=== PATIENT | male | born 1945 | race Caucasian/White ===

== ENCOUNTER → 2022-06-19 | Outpatient (CLI) | payer MEDICARE ==
[2022-06-19 14:52] LABS: African American GFR (CKD) 95.8 (60.0-200.0); Anion Gap 12.9 mmol/L (10.00-18.00); BUN/Creat Ratio 16.56 Ratio (12.00-20.00); Blood Urea Nitrogen 14.9 mg/dL (9.0-27.0); Calcium 9.5 mg/dL (8.7-10.3); Carbon Dioxide 27.1 mmol/L (20.0-27.5); Non-African American GFR(CKD) 82.7 (60.0-200.0); Potassium 3.6 mmol/L (3.5-5.5)
[2022-06-19 15:06] LABS: Basophils # (A) 0.05 X 10*3/uL (0.00-0.10); Basophils % (A) 0.6 %; Eosinophils # (A) 0.25 X 10*3/uL (0.04-0.35); Eosinophils % (A) 2.9 %; HGB 15.7 g/dL (13.0-17.0); Immature Grans, Automated 0.2 %; Lymphocytes # (A) 1.09 X 10*3/uL (0.90-5.00); Lymphocytes % (A) 12.6 %; MCH 29.7 pg (27.0-32.0); MCHC 34.1 g/dL (32.0-37.0); Mean Platelet Volume 9.2 fL (9.5-12.2); Monocytes # (A) 0.85 X 10*3/uL (0.20-1.00); Monocytes % (A) 9.8 %; NRBC Per 100 WBC 0 /100 WBCS (0.0-0.0); Neutrophils # (A) 6.42 X 10*3/uL (1.80-7.70); Neutrophils % (A) 73.9 %; Platelet Count 266 X 10*3/uL (140-440); RBC 5.29 X 10*6/uL (4.40-5.60); RDW 13.9 % (11.5-14.5); WBC 8.68 X 10*3/uL (4.50-10.00)
== END | disposition home or self-care (01) ==
LOC: LABPAT 09:33
PROVIDERS: ATTEND Urology
DX: Z01.812 Encounter for preprocedural laboratory examination (principal); C61 Malignant neoplasm of prostate
CPT/HCPCS: 80048; 85025

== ENCOUNTER 2022-06-28 10:22 | Day surgery (SDC) | payer MEDICARE ==
--- NOTE | 2022-06-26 20:35 | P.GSHP ---
History of Present Illness H&P Date: 06/26/22 Chief Complaint: Prostate cancer The patient is a 76-year-old white male diagnosed with prostate cancer in April 2021. 3 of 12 biopsies showed [place] 6 adenocarcinoma, located in the right apex, right lateral apex, and left mid gland. The PSA level has been rising and was most recently 7.10. His father of metastatic prostate cancer. The patient was advised that his cancer is low risk and that active surveillance is an appropriate course of action. However, he wishes to undergo treatment in the form of a robotic-assisted laparoscopic prostatectomy (RALP). He is and not sexually active. He reports mild obstructive voiding symptoms. 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 has had injections to this area History of Any Multi-Drug Resistant Organisms: None Reported Past Surgical History: Tonsillectomy Additional Past Surgical History / Comment(s): toe surgery on left great toe Past Anesthesia/Blood Transfusion Reactions: No Reported Reaction Smoking Status: Never smoker - Past Family History Father Additional Family Medical History / Comment(s): prostate ca in dad and brother with mets to bone Mother Family Medical History: Coronary Artery Disease (CAD), Diabetes Mellitus Additional Family Medical History / Comment(s): borderline dm obesity Medications and Allergies Home Medications Medication Instructions Recorded Confirmed Type Ascorbic Acid [Vitamin C] 500 mg PO DAILY 06/23/22 06/23/22 History Aspirin [Adult Low Dose Aspirin EC] 81 mg PO DAILY 06/23/22 06/23/22 History Atorvastatin [Lipitor] 40 mg PO DAILY 06/23/22 06/23/22 History Celecoxib [CeleBREX] 200 mg PO DAILY 06/23/22 06/23/22 History Chlorthalidone 25 mg PO DAILY 06/23/22 06/23/22 History Cholecalciferol [Vitamin D3 (25 1 tab PO DAILY 06/23/22 06/23/22 History Mcg = 1000 Iu)] Metoprolol Succinate (ER) [Toprol 50 mg PO DAILY 06/23/22 06/23/22 History Xl] Potassium Chloride [Potassium 10 meq PO DAILY 06/23/22 06/23/22 History Chloride ER] Zinc Gluconate [Zinc] 50 mg PO DAILY 06/23/22 06/23/22 History amLODIPine 10 mg PO DAILY 06/23/22 06/23/22 History cycloSPORINE 0.05% OPHTH SOLN 1 drop BOTH EYES DAILY 06/23/22 06/23/22 History [Restasis] Allergies Allergy/AdvReac Type Severity Reaction Status Date / Time No Known Allergies Allergy Verified 06/23/22 15:08 Surgical - Exam - General well developed, well nourished, no distress - Neck no masses, trachea midline - Respiratory normal respiratory effort - Abdomen Abdomen: soft, non tender, no guarding, no rigid, no rebound Hernia: inguinal, umbilical - Genitourinary normal penis with no external lesions, testicles non-tender - Rectum Rectum: normal sphincter tone, no masses, other (Left apical prostate nodule) - Psychiatric oriented to time, oriented to person, oriented to place, speech is normal, memory intact Assessment and Plan (1) Malignant neoplasm of prostate Status: Acute Code(s): C61 - MALIGNANT NEOPLASM OF PROSTATE SNOMED Code(s): 180578443 Plan: Robotic-assisted laparoscopic prostatectomy (RALP). The procedure has been reviewed in detail with the patient. He has been made aware of potential risks, which include anesthesia, bleeding, infection, bowel injury, urinary leak, vesical neck contracture, and postoperative urinary incontinence which may fail to resolve.
[~2022-06-28 10:22] MED LIST: DEXAMETHASONE SOD PHOSPHATE 4 MG/ML 1 ML VIAL IV ONE; HEPARIN SODIUM,PORCINE/PF 5,000 UNIT/0.5 ML SYRINGE SQ PRN; HYDROmorphone 0.5 MG/0.5 ML SYRINGE IVP PRN; MIDAZOLAM 2 MG/2 ML VIAL IV PRN; ONDANSETRON 4 MG/2 ML VIAL IVP ONE
[2022-06-28] MEDS: LACTATED RINGERS 1,000 ML IV SCH (10:55)
[2022-06-28] MEDS ORDERED: ROPIVACAINE 5 MG/ML 30 ML VIAL ONE (12:36)
[2022-06-28] MEDS ORDERED: NEOSTIGMINE 1 MG/ML 10 ML VIAL ONE (12:36)
[2022-06-28] MEDS ORDERED: SUCCINYLCHOLINE CHLORIDE 200 MG/10 ML VIAL IV ONE (12:36)
[2022-06-28] MEDS ORDERED: fentaNYL (PF) 50 MCG/ML 2 ML AMP ONE (12:36)
[2022-06-28] MEDS ORDERED: MIDAZOLAM 2 MG/2 ML VIAL ONE (12:36)
[2022-06-28] MEDS ORDERED: GLYCOPYRROLATE 0.2 MG/ML 2 ML VIAL ONE (12:36)
[2022-06-28] MEDS ORDERED: LIDOCAINE 2% INJ 20 MG/ML (2 ML VIAL) ONE (12:36)
[2022-06-28] MEDS ORDERED: DEXAMETHASONE SOD PHOS (MDV) 100 MG/10 ML VIAL ONE (12:36)
[2022-06-28] MEDS ORDERED: HYDROmorphone (PF) 1 MG/ML ONE (12:36)
[2022-06-28] MEDS ORDERED: PROPOFOL 10 MG/ML 20 ML VIAL IV ONE (12:36)
[2022-06-28] MEDS ORDERED: ROCURONIUM 10 MG/ML (5 ML VIAL) IV ONE (12:36)
[2022-06-28] MEDS ORDERED: SODIUM CHLORIDE 0.9% (PF) 10 ML VIAL ONE (12:36)
[2022-06-28] MEDS ORDERED: PHENYLEPHRINE-0.9% NACL SYG 1,000 MCG/10 ML SYRINGE ONE (12:36)
[2022-06-28] MEDS ORDERED: BUPIVACAINE (PF) 0.25% 30 ML VIAL SQ ONE ×2 (13:18→16:29)
--- NOTE | 2022-06-28 13:19 | P.ANPRN ---
Procedure Note - Anesthesia - Nerve Block Performed Bilateral Erector Spinae Time Out Performed: Yes (11:36) Date of Procedure: 06/28/22 Procedure Start Time: :36 Procedure Stop Time: :43 Location of Patient: PreOp Indication: Acute Post-Operative Pain, Requested by Surgeon (Dr Mcneill) Sedation Type: Sedate with meaningful contact maintained Preparation: Sterile Prep Position: Sitting Catheter: None Needle Types: Pajunk Needle Gauge: 21 Ultrasound used to visualize needle placement: Yes Ultrasound used to observe medication spread: Yes Injectate: 0.5% Ropivacaine (see comment for volume) (15cc +10cc PF Normal saline each side) Blood Aspirated: No Pain Paresthesia on Injection Noted: No Resistance on Injection: Normal Image Stored and Saved: Yes Events: Uneventful and Well Tolerated
[2022-06-28] MEDS ORDERED: LACTATED RINGERS 1,000 ML IV ONE (15:53)
--- NOTE | 2022-06-28 16:41 | P.OP ---
Date of Procedure: 06/28/22 Preoperative Diagnosis: Adenocarcinoma the prostate Postoperative Diagnosis: Same Procedure(s) Performed: Robotic-assisted laparoscopic prostatectomy (RALP) Anesthesia: REJI Surgeon: Jabier Mcneill Estimated Blood Loss (ml): 75 IV fluids (ml): 1,800 Pathology: other (Prostate with seminal vesicles) Condition: stable Disposition: PACU Indications for Procedure: The patient is a 76-year-old white male diagnosed with prostate cancer in April 2021. 3 of 12 biopsies showed [place] 6 adenocarcinoma, located in the right apex, right lateral apex, and left mid gland. The PSA level has been rising and was most recently 7.10. His father of metastatic prostate cancer. The patient was advised that his cancer is low risk and that active surveillance is an appropriate course of action. However, he wishes to undergo treatment in the form of a robotic-assisted laparoscopic prostatectomy (RALP) and comes for this reason. Operative Findings: No evidence of extraprostatic disease. Description of Procedure: The patient was taken in the operating room and placed in the supine position. He was carefully positioned on a beanbag for stability. The abdomen and external genitalia were prepped and draped sterilely. A Alcantar catheter was inserted. The Veress needle was passed through the anterior abdominal wall immediately cephalad to the umbilicus, and insufflation was performed to a pressure of 20 mm Hg. Once insufflation was performed, the Veress needle was removed and a supraumbilical incision was made, through which an 8 mm camera port was placed. Under camera guidance, 3 8 mm robotic ports were placed, 2 on the left and one on the right. A 12 mm port was placed on the right lateral side for use as an curatorial assistant port. A 5 mm port was placed to the right of the camera port for suction. The patient was placed in Trendelenburg position, and docking was then performed to the da Tiffanie system utilizing a 4-arm approach. The abdomen was examined. The sigmoid colon was mobilized out of the pelvis. The peritoneum was incised lateral to the medial umbilical ligaments bilaterally, exposing the pubis. The peritoneum was then incised across the midline, allowing the bladder flap to be taken down. The endopelvic fascia was opened bilaterally, and muscular attachments from the urogenital diaphragm were swept away from the prostate. The vesical neck was incised transversely, down to the lumen. The Alcantar catheter was brought out through the anterior vesical neck incision and was used for traction. The posterior aspect of the vesical neck was incised, such that t he full-thickness of the vesical neck was divided. The anterior layer of the Denonvilliers fascia was incised, exposing the vas deferens. Each were isolated and divided. Next, each of the seminal vesicles were dissected away from adjacent tissues, and vascular attachments were cauterized and divided. The posterior leaf of Denonvilliers fascia was incised transversely, allowing entry into the plane between the prostate and rectum. With lateral spreading, this plane was developed down to the apex. This exposed the lateral vascular pedicles bilaterally. These were clipped and divided in an antegrade fashion, down to the apex. The use of electrocautery was avoided to prevent thermal damage to the nerves. The remaining apical attachments were swept away from the prostate. The dorsal venous complex was incised, as well as periurethral tissue. At this point, only the urethra remained intact. This was transected immediately distal to the prostatic apex using cold scissors. The specimen was placed within a specimen bag. The dorsal venous complex was sutured using a V-Loc suture in a running fashion. The suture was passed through the periosteum of the pubis periurethral support. A second V-Loc suture was then used to place the Ramos stitch, incorporating the rhabdosphincter and the edge of Denonvilliers fascia. This allowed the bladder to be taken down to the urethra, leaving the vesical neck immediately adjacent to the urethra. The vesicourethral anastomosis was then performed using a V-Loc suture in a running fashion. After completing the anastomosis, an 18-Kosovan Alcantar catheter was placed and approximately 125 mL of 0.9 normal saline were instilled into the bladder. No extravasation of irrigant from the vesicourethral anastomosis was noted. Surgicel was placed over the vascular pedicles bilaterally. The patient was returned to the supine position. Undocking was performed, and the specimen bag sutures were passed through the camera port. After removing all the ports and allowing all of the CO2 to be released from the peritoneal cavity, the camera port incision was enlarged to allow removal of the surgical specimen. The fascia of this incision was then closed using 0 PDS suture in a running fashion. Each of the skin incisions were then closed using 4-0 Monocryl suture in a subcuticular fashion. Marcaine was injected at each of the incision sites. Dermabond was applied to each incision. The Alcantar catheter was connected to gravity drainage. All sponge and needle counts were correct. The patient tolerated the procedure well was taken to the recovery room in stable condition.
[2022-06-28] MEDS ORDERED: HYDROmorphone 1 MG/ML 1 ML SYRINGE IVP PRN (16:42)
[2022-06-28] MEDS ORDERED: KETOROLAC 15 MG/ML 1 ML VIAL IVP PRN (16:42)
[2022-06-28] MEDS ORDERED: ONDANSETRON 4 MG/2 ML VIAL IVP PRN (16:42)
[2022-06-28] MEDS: MOXIFLOXACIN HCL 0.5% DROPS 3 ML BTL RIGHT EYE SCH ×2 (18:45→21:08)
[2022-06-28] MEDS: HEPARIN SODIUM,PORCINE/PF 5,000 UNIT/0.5 ML SYRINGE SQ SCH (21:08)
[2022-06-28] MEDS: DEXTROSE 5%-0.45% NACL 1,000 ML IV SCH (21:16)
[2022-06-28] MEDS: ACETAMINOPHEN TAB 325 MG TAB PO PRN (22:03)
[2022-06-29] MEDS: DEXTROSE 5%-0.45% NACL 1,000 ML IV SCH ×2 (00:48→11:13)
[2022-06-29] MEDS: LACTATED RINGERS 1,000 ML IV SCH (07:52)
[2022-06-29] MEDS ORDERED: CHLORTHALIDONE 25 MG TAB PO SCH (09:00)
[2022-06-29] MEDS ORDERED: ATORVASTATIN 40 MG TAB PO SCH (09:00)
[2022-06-29] MEDS ORDERED: METOPROLOL SUCCINATE (ER) 50 MG TAB.ER.24H PO SCH (09:00)
[2022-06-29] MEDS ORDERED: POTASSIUM CHLORIDE ER 10 MEQ TAB.ER.PRT PO SCH (09:00)
[2022-06-29] MEDS ORDERED: amLODIPine 10 MG TAB PO SCH (09:00)
[2022-06-29] MEDS ORDERED: cycloSPORINE 0.05% OPHTH 0.4 ML DROPERETTE BOTH EYES SCH (09:00)
[2022-06-29] MEDS: HEPARIN SODIUM,PORCINE/PF 5,000 UNIT/0.5 ML SYRINGE SQ SCH (09:26)
[2022-06-29] MEDS: ACETAMINOPHEN TAB 325 MG TAB PO PRN (09:27)
[2022-06-29] MEDS: MOXIFLOXACIN HCL 0.5% DROPS 3 ML BTL RIGHT EYE SCH (09:28)
[2022-06-29 11:34] VITALS: BP 127/77; PULSE 89; RESP 18; TEMP 98
--- NOTE | 2022-06-29 14:29 | P.DS ---
Providers Expected date of discharge: 06/29/22 Attending physician: Jabier Mcneill Primary care physician: Surendra Denny Bacheldor - Discharge Diagnosis(es) (1) Malignant neoplasm of prostate Current Visit: No Status: Acute Hospital Course: On the day of admission, the patient underwent an uncomplicated robotic-assisted laparoscopic prostatectomy (RALP). The perioperative course was unremarkable. He remained afebrile with stable vital signs. On the first postoperative day, he reported only incisional discomfort. He was otherwise feeling well. He was sitting up in a chair. The incisions were clean and dry. The Alcantar catheter was draining clear yellow urine. He tolerated diet and denied nausea. Procedures: RALP on 06/28/2022. Patient Condition at Discharge: Good Plan - Discharge Summary Discharge Rx Participant: No New Discharge Prescriptions: New Ciprofloxacin HCl [Cipro] 250 mg PO Q12HR #6 tablet Ketorolac [Toradol] 10 mg PO Q6HR PRN #10 tab PRN Reason: Pain No Action Zinc Gluconate [Zinc] 50 mg PO DAILY Ascorbic Acid [Vitamin C] 500 mg PO DAILY amLODIPine 10 mg PO DAILY Atorvastatin [Lipitor] 40 mg PO DAILY cycloSPORINE 0.05% OPHTH SOLN [Restasis] 1 drop BOTH EYES DAILY Potassium Chloride [Potassium Chloride ER] 10 meq PO DAILY Aspirin [Adult Low Dose Aspirin EC] 81 mg PO DAILY Metoprolol Succinate (ER) [Toprol Xl] 50 mg PO DAILY Celecoxib [CeleBREX] 200 mg PO DAILY Cholecalciferol [Vitamin D3 (25 Mcg = 1000 Iu)] 1 tab PO DAILY Chlorthalidone 25 mg PO DAILY Discharge Medication List Ascorbic Acid [Vitamin C] 500 mg PO DAILY 06/23/22 [History] Aspirin [Adult Low Dose Aspirin EC] 81 mg PO DAILY 06/23/22 [History] Atorvastatin [Lipitor] 40 mg PO DAILY 06/23/22 [History] Celecoxib [CeleBREX] 200 mg PO DAILY 06/23/22 [History] Chlorthalidone 25 mg PO DAILY 06/23/22 [History] Cholecalciferol [Vitamin D3 (25 Mcg = 1000 Iu)] 1 tab PO DAILY 06/23/22 [History] Metoprolol Succinate (ER) [Toprol Xl] 50 mg PO DAILY 06/23/22 [History] Potassium Chloride [Potassium Chloride ER] 10 meq PO DAILY 06/23/22 [History] Zinc Gluconate [Zinc] 50 mg PO DAILY 06/23/22 [History] amLODIPine 10 mg PO DAILY 06/23/22 [History] cycloSPORINE 0.05% OPHTH SOLN [Restasis] 1 drop BOTH EYES DAILY 06/23/22 [History] Ciprofloxacin HCl [Cipro] 250 mg PO Q12HR #6 tablet 06/29/22 [Rx] Ketorolac [Toradol] 10 mg PO Q6HR PRN #10 tab 06/29/22 [Rx] Follow up Appointment(s)/Referral(s): [facility], [NON-STAFF] - 1 Week Jabier Mcneill MD [STAFF PHYSICIAN] - 07/10/22 Activity/Diet/Wound Care/Special Instructions: Discharge home with Alcantar catheter. Instruct patient to use overnight drainage bag as well as urinary leg bag. Okay to shower. Diet as tolerated. No lifting, driving, or strenuous activity. Reassure patient that abdominal wall ecchymosis and penoscrotal swelling are normal. Instruct patient to begin taking antibiotics one day prior to Alcantar catheter removal. Discharge Disposition: HOME SELF-CARE
== END 2022-06-29 16:03 | disposition home or self-care (01) ==
LOC: OR 10:22 → 5NMEDONC 16:31 → OR 06-29 16:03
PROVIDERS: ATTEND Urology
DX: C61 Malignant neoplasm of prostate (principal); G89.18 Other acute postprocedural pain; E78.5 Hyperlipidemia, unspecified; I10 Essential (primary) hypertension; Z90.89 Acquired absence of other organs; Z80.42 Family history of malignant neoplasm of prostate; Z80.8 Family history of malignant neoplasm of other organs or systems; Z82.49 Family history of ischemic heart disease and other diseases of the circulatory system; Z83.3 Family history of diabetes mellitus; Z79.82 Long term (current) use of aspirin; Z79.1 Long term (current) use of non-steroidal anti-inflammatories (NSAID); Z79.899 Other long term (current) drug therapy
CPT/HCPCS: 55899; 64461; 86900; 86901; 86850; J2250; J0330; J1100 ×2; J2710; J0690 ×3; J2405; J3010; J1170 ×2; J2795; J1885; J2370; J2704; J1644 ×2; J2001

== ENCOUNTER → 2022-07-31 | Outpatient (CLI) | payer MEDICARE | END | disposition home or self-care (01) | LOC: LABWHC1 10:20 | PROVIDERS: ATTEND Urology | DX: C61 Malignant neoplasm of prostate (principal) | CPT/HCPCS: 36415; 84153 ==